=== PATIENT | female | born 1995 | race Caucasian/White ===

== ENCOUNTER 2016-08-19 17:54 | Observation (INO) ==
[2016-08-19 19:15] LABS: Basophils % 0.2 %; Eosinophils # 0.1 K/mcL (0.0-0.6); Eosinophils % 0.5 %; Hematocrit 39.5 % (35.3-44.9); Hemoglobin 13.7 g/dL (11.5-15.4); Immature Granulocytes % 0.9 % (0-4); Lymphocytes # 2.7 K/mcL (0.6-4.6); Lymphocytes % 21.7 %; Mean Corpuscular HGB Conc 34.7 g/dL (31.6-35.5); Mean Corpuscular Hemoglobin 30.6 pg (28.0-33.3); Mean Corpuscular Volume 88.4 fL (83.0-100.0); Monocytes % 7.9 %; Neutrophils # 8.6 K/mcL (1.6-8.9); Platelet Count 242 K/mcL (140-400); Red Blood Count 4.47 M/mcL (3.82-4.97); Red Cell Distribution Width 12.2 % (11.5-14.5); Segmented Neutrophils % 68.8 %
[2016-08-19 19:28] LABS: Alanine Aminotransferase 9 Units/L (0-55); Aspartate Amino Transferase 10 Units/L (5-34); BUN/Creatinine Ratio 16 (6-26); Blood Urea Nitrogen 9 mg/dL (7-20); Lactate Dehydrogenase 156 Units/L (159-327); Uric Acid 5.3 mg/dL (2.6-6.0); eGFR For African Americans > 60 (> 60); eGFR For Non-African Americans > 60 (> 60)
--- NOTE | 2016-08-19 19:57 | OB/GYN Progress Note ---
Date of Encounter: 08/19/16 Time of Encounter: 19:55 - Assessment and Plan (1) 34 weeks gestation of Current Visit: Yes Status: Chronic (2) Chronic hypertension affecting Current Visit: Yes Status: Chronic BP's 118-140/65-93, labs normal. Patient has appointment with her primary OB in the AM. She knows she should followup with her and plans to deliver at [facility] where she gets care. Patient was seen and evaluated by RN with reactive NST and normal BP's and sent home to followup tomorrow. Objective - Labs Labs: Abnormal lab results WBC 12.5 K/mcL (4.3-11.1) H 08/19/16 18:59 Lactate Dehydrogenase 156 Units/L (159-327) L 08/19/16 18:59
== END 2016-08-19 19:40 | disposition other institution (70) ==
LOC: 1NENULAB
PROVIDERS: ADMIT Obstetrics & Gynecology; ATTEND Obstetrics & Gynecology

== ENCOUNTER 2016-09-22 21:37 | Observation (INO) ==
[2016-09-22 21:54] LABS: Basophils # 0.1 K/mcL (0.0-0.2); Basophils % 0.4 %; Eosinophils # 0.2 K/mcL (0.0-0.6); Eosinophils % 1.4 %; Hematocrit 30.2 % (35.3-44.9); Hemoglobin 9.9 g/dL (11.5-15.4); Immature Granulocytes % 2.4 % (0-4); Lymphocytes # 2.8 K/mcL (0.6-4.6); Lymphocytes % 24.9 %; Mean Corpuscular HGB Conc 32.8 g/dL (31.6-35.5); Mean Corpuscular Hemoglobin 29.6 pg (28.0-33.3); Mean Corpuscular Volume 90.1 fL (83.0-100.0); Mean Platelet Volume 9.3 fL (9.4-12.4); Monocytes # 0.7 K/mcL (0.0-1.3); Monocytes % 6.1 %; Neutrophils # 7.4 K/mcL (1.6-8.9); Platelet Count 424 K/mcL (140-400); Red Blood Count 3.35 M/mcL (3.82-4.97); Segmented Neutrophils % 64.8 %
--- NOTE | 2016-09-22 21:54 | OB/GYN History & Physical ---
Date of Encounter: 09/22/16 Time of Encounter: 21:42 Assessment and Plan (1) hypertension Current visit: Yes Status: Acute BP 137/93 with HR 126 on intake. Serial BP measurements did not show HTN. Serial HR measurements did not show tachycardia. No significant edema. Lab work normal except AST of 41; patient is 7 days s/p . Patient stable without evidence of pre-eclampsia. History of Present Illness Chief complaint: BALLARD, HTN HPI: Ms. Zhang is a 21 year old female arriving from home via EMS with CC: BALLARD, HTN. BALLARD onset this morning, located right tempral without neurologic changes. Patient's significant other is in training for commercial lines sales executive/EMS; she measured her blood pressure to be 160/115. EMS in route measured BP 178/123 with HR 135. No seizures. Past medical history of HTN and HLD. Pre- HTN treated with Procardia 40mg PO Qdaily. Once , she was well controlled with labetolol until 7mo gestation when her BP increased steadily. She was switched to Procardia 60mg PO Qdaily. No proteinuria during . Patient was at [facility]. 15 September; indication- intolerance of labor. Patient had some confusion about her complications and said that she was given magnesium for several days and had post proteinuria. Patient's noted they performed a cardiac echo and planned on performing a spiral CT however patient signed out AMA from [facility] prior to completion of CT. OB: Elza Meza. Past Med Surg Social Fam HX - Past Medical History Medical history: hypertension, other Psychiatric history: ADHD, PTSD - Social History Smoking Status: Never smoker Smokeless Tobacco Status: No Alcohol use: none Drug use: none - Family History Mother Adopted: Yes Medications and Allergies Labetalol 50 mg PO BID 06/06/16 [History] Formula Tablet 1 tab PO DAILY 06/06/16 [History] PriLOSEC 20 mg PO DAILY 06/06/16 [History] Allergies duloxetine [From Cymbalta] Adverse Reaction (Verified 09/22/16 22:32) Rash Review of System OB - Nose, mouth, and throat Nose, mouth and throat: headache(s) - Cardiovascular Cardiovascular: leg edema, no chest pain, no dyspnea, no lightheadedness, no syncope - Respiratory Respiratory: no cough, no dyspnea - Gastrointestinal Gastrointestinal: no abdominal pain, no heartburn, no nausea - Genitourinary Genitourinary: no abnormal vaginal bleeding - Muscloskeletal Musculoskeletal: no muscle cramps, no muscle weakness - Neurological Nerological: headache(s), no confusion, no convulsions, no disequilibrium, no dizziness, no focal weakness, no loss of vision, no paresthesias, no sensory deficit, no tingling, no weakness - Psychiatric Psychiatric: no anxiety Exam - Constitutional Constitutional: well developed, well nourished, no acute distress, average body habitus - HEENT HEENT: EOMI, PERRL, Normocephaly, Mucus Membranes Moist - Neck Neck exam: normal inspection, supple - Lungs Respiratory exam: CTAB - Cardiovascular Cardiovascular exam: RRR, +S1, +S2 - Abdomen Abdomen: Present: bowel sounds normal, non tender. Absent: gravid, guarding noted, mass - Extremities Extremities exam: normal capillary refill, normal inspection, pedal edema (1 bilateral) Deep Tendon Reflex Grade: 2+ Normal - Uterus Uterus exam: Present: enlarged (firm, 3 finger breadths below umbilicus), normal contour - Comments Comments: NEURO: CN II-XII intact. Sensation to light touch intact. Muscle strength 5/5 and equal bilaterally in the upper and lower extremities. DTRs 2/4 and equal bilaterally lower extremities; no clonus. No focal neurologic deficits. Results Result Diagrams: 09/22/16 21:45 09/22/16 21:45 All other labs normal. - VTE Reasons for not Prescribing Prophylaxis: Treatment not Indicated - Low risk for VTE
[2016-09-22 22:08] LABS: Alanine Aminotransferase 52 Units/L (0-55); Aspartate Amino Transferase 41 Units/L (5-34); BUN/Creatinine Ratio 19 (6-26); Blood Urea Nitrogen 12 mg/dL (7-20); Uric Acid 5.9 mg/dL (2.6-6.0); eGFR For African Americans > 60 (> 60); eGFR For Non-African Americans > 60 (> 60)
[2016-09-22 22:12] LABS: Lactate Dehydrogenase 357 Units/L (159-327)
[2016-09-22 22:40] LABS: Protein/Creatinine Ratio,Urine 0.23 mg/mg (0-0.20)
[2016-09-22] MEDS: Acetaminophen 325 MG TABLET PO ONE ×2 (22:57→22:58)
--- NOTE | 2016-09-22 23:04 | Discharge Summary ---
Outpatient Proc Discharge Plan - Plan Prescriptions: Labetalol 100 mg PO BID #60 NIFEdipine XL (24 HR) [Procardia XL] 0 mg .ROUTE DAILY #30 tab.er.24 Home Medications: Formula Tablet 1 tab PO DAILY 06/06/16 [History] PriLOSEC 20 mg PO DAILY 06/06/16 [History] Labetalol 100 mg PO BID #60 09/22/16 [Rx] NIFEdipine XL (24 HR) [Procardia XL] 0 mg .ROUTE DAILY #30 tab.er.24 09/22/16 [ Rx]
[2016-09-23 01:05] VITALS: BP 144/99
== END 2016-09-22 23:57 | disposition home or self-care (01) ==
LOC: 1NENULAB
PROVIDERS: ADMIT Obstetrics & Gynecology; ATTEND Obstetrics & Gynecology

== ENCOUNTER 2020-07-19 17:57 | Observation (INO) | END 2020-07-19 19:15 | disposition home or self-care (01) | LOC: 1NENULAB | PROVIDERS: ADMIT Obstetrics & Gynecology; ATTEND Obstetrics & Gynecology ==

== ENCOUNTER → 2020-08-04 23:10 | Observation (INO) ==
[2020-08-04 22:11] LABS: Bacteria,Urine Few per hpf (None-Few); Bilirubin,Urine Negative (Negative); Blood,Urine Negative (Negative); Clarity,Urine Clear (Clear); Color,Urine Light-Yellow (Yellow); Glucose,Urine (UA) Normal (Normal); Ketones,Urine Negative (Negative); Leukocyte Esterase,Urine Trace (Negative); Nitrite,Urine Negative (Negative); Protein,Urine Trace mg/dL (Neg-Trace); RBC,Urine 0-3 per hpf (0-3); Specific Gravity,Urine 1.025 (1.010-1.025); Squamous Epithelial Cell,Urine Few per hpf (None-Few); WBC,Urine 0-3 per hpf (0-3)
== END | disposition home or self-care (01) ==
LOC: 1NENULAB
PROVIDERS: ADMIT Student in an Organized Health Care Education/Training Program; ATTEND Student in an Organized Health Care Education/Training Program

== ENCOUNTER 2020-08-29 22:22 | Observation (INO) ==
[2020-08-29 23:02] LABS: Bilirubin,Urine Negative (Negative); Blood,Urine Trace (Negative); Clarity,Urine Clear (Clear); Color,Urine Light-Yellow (Yellow); Glucose,Urine (UA) Normal (Normal); Ketones,Urine Trace mg/dL (Negative); Leukocyte Esterase,Urine Trace (Negative); Mucus,Urine Few per lpf (None-Few); Nitrite,Urine Negative (Negative); PH,Urine 6.5 pH Units (5.0-8.0); Protein,Urine Trace mg/dL (Neg-Trace); RBC,Urine 0-3 per hpf (0-3); Specific Gravity,Urine 1.025 (1.010-1.025); Squamous Epithelial Cell,Urine Moderate per hpf (None-Few); Urobilinogen,Urine Normal (Normal)
== END 2020-08-29 23:57 | disposition home or self-care (01) ==
LOC: 1NENULAB
PROVIDERS: ADMIT Advanced Practice Midwife; ATTEND Advanced Practice Midwife

== ENCOUNTER 2020-09-11 14:10 | Observation (INO) ==
[2020-09-11 15:42] LABS: Basophils % 0.4 %; Eosinophils # 0.1 K/mcL (0.0-0.6); Hematocrit 39.3 % (35.3-44.9); Hemoglobin 13.1 g/dL (11.5-15.4); Immature Granulocytes % 0.9 % (0-4); Lymphocytes # 2.1 K/mcL (0.6-4.6); Lymphocytes % 20.9 %; Mean Corpuscular HGB Conc 33.3 g/dL (31.6-35.5); Mean Corpuscular Hemoglobin 30.1 pg (28.0-33.3); Mean Corpuscular Volume 90.3 fL (83.0-100.0); Mean Platelet Volume 10.8 fL (9.4-12.4); Monocytes # 0.5 K/mcL (0.0-1.3); Monocytes % 4.8 %; Neutrophils # 7.1 K/mcL (1.6-8.9); Platelet Count 219 K/mcL (140-400); Red Blood Count 4.35 M/mcL (3.82-4.97); Red Cell Distribution Width 12.9 % (11.5-14.5); White Blood Count 9.9 K/mcL (4.3-11.1)
[2020-09-11 15:46] LABS: Protein/Creatinine Ratio,Urine 0.11 mg/mg (0.00-0.20)
[2020-09-11] MEDS ORDERED: Perflutren Lipid Microsphere 1.3 ML in 0.9 % Sodium Chloride 8.7 ML IVP PRN (15:53)
[2020-09-11 15:56] LABS: Alanine Aminotransferase 10 Units/L (7-52); Aspartate Amino Transferase 10 Units/L (13-39); BUN/Creatinine Ratio 9 (6-26); Blood Urea Nitrogen 4 mg/dL (6-20); Lactate Dehydrogenase 131 Units/L (140-271); Uric Acid 4.4 mg/dL (2.3-7.6); eGFR For African Americans > 60 (> 60); eGFR For Non-African Americans > 60 (> 60)
[2020-09-11 16:03] LABS: Bacteria,Urine Few per hpf (None-Few); Bilirubin,Urine Negative (Negative); Blood,Urine Trace (Negative); Clarity,Urine Clear (Clear); Color,Urine Light-Yellow (Yellow); Glucose,Urine (UA) Normal (Normal); Ketones,Urine Negative (Negative); Leukocyte Esterase,Urine Negative (Negative); Mucus,Urine Few per lpf (None-Few); Nitrite,Urine Negative (Negative); PH,Urine 6.5 pH Units (5.0-8.0); Protein,Urine Trace mg/dL (Neg-Trace); RBC,Urine 0-3 per hpf (0-3); Specific Gravity,Urine 1.024 (1.010-1.025); Squamous Epithelial Cell,Urine Few per hpf (None-Few); Urobilinogen,Urine Normal (Normal); WBC,Urine 0-3 per hpf (0-3)
[2020-09-11 18:51] LABS: Candida DNA Not Detected (Not Detect); Gardnerella DNA DETECTED (Not Detect); Trichomonas DNA Not Detected (Not Detect)
== END 2020-09-11 18:20 | disposition home or self-care (01) ==
LOC: 1NENULAB
PROVIDERS: ADMIT Obstetrics & Gynecology; ATTEND Obstetrics & Gynecology

== ENCOUNTER 2020-12-03 19:54 | Inpatient (IN) ==
[~2020-12-03 19:54] MED LIST: Azithromycin 500 MG in 0.9 % Sodium Chloride 250 ML IVPB ONE; Famotidine 20 MG/2 ML VIAL IVP PRN; Metoclopramide 10 MG/2 ML VIAL IVP PRN; Naloxone 0.4 MG/ML INJ IVP PRN; Ondansetron 4 MG/2 ML VIAL IVP PRN
[2020-12-03] MEDS ORDERED: Ringers Solution, Lactated 1,000 ML IVC SCH (20:00)
[2020-12-03] MEDS ORDERED: CeFAZolin Syr 3,000MG/30 ML 3,000 MG/30 ML SYRINGE IVPB ONE (20:07)
[2020-12-03] MEDS ORDERED: *HR* Labetalol 20 MG/4 ML SYRINGE IVP ONE ×2 (20:31→20:32)
[2020-12-03 21:30] LABS: Basophils % 0.3 %; Eosinophils # 0.1 K/mcL (0.0-0.6); Eosinophils % 0.6 %; Hematocrit 36.9 % (35.3-44.9); Hemoglobin 12.5 g/dL (11.5-15.4); Immature Granulocytes % 0.7 % (0-4); Lymphocytes # 1.4 K/mcL (0.6-4.6); Lymphocytes % 14.7 %; Mean Corpuscular HGB Conc 33.9 g/dL (31.6-35.5); Mean Corpuscular Hemoglobin 30.3 pg (28.0-33.3); Mean Corpuscular Volume 89.3 fL (83.0-100.0); Mean Platelet Volume 10.4 fL (9.4-12.4); Monocytes # 0.5 K/mcL (0.0-1.3); Monocytes % 5.5 %; Neutrophils # 7.5 K/mcL (1.6-8.9); Platelet Count 219 K/mcL (140-400); Red Blood Count 4.13 M/mcL (3.82-4.97); Red Cell Distribution Width 13.2 % (11.5-14.5); Segmented Neutrophils % 78.2 %; White Blood Count 9.6 K/mcL (4.3-11.1)
[2020-12-03 21:37] LABS: Amphetamine Screen,Urine Negative ng/mL (Cutoff=1000); Barbiturate Screen,Urine Negative ng/mL (Cutoff=200); Benzodiazepines Screen,Urine Negative ng/mL (Cutoff=200); Cannabinoid Screen,Urine Negative ng/mL (Cutoff = 50); Cocaine Screen,Urine Negative ng/mL (Cutoff= 300); Creatinine,Urine 68 mg/dL; Opiate Screen,Urine Negative ng/mL (Cutoff=300); Phencyclidine Screen,Urine Negative ng/mL (Cutoff=25); Protein/Creatinine Ratio,Urine 0.28 mg/mg (0.00-0.20)
[2020-12-04] MEDS ORDERED: *HR* Morphine Sulfate/PF 10 MG/10 ML AMPUL ONE (00:08)
[2020-12-04] MEDS ORDERED: *HR* FentaNYL (PF) 100 MCG/2 ML VIAL ONE (00:09)
[2020-12-04] MEDS ORDERED: Ondansetron 4 MG/2 ML VIAL ONE (00:28)
[2020-12-04] MEDS ORDERED: Acetaminophen IV 1,000 MG/100 ML BAG IVPB ONE (00:29)
[2020-12-04] MEDS ORDERED: Ketorolac 30 MG/ML VIAL ONE (00:29)
[2020-12-04] MEDS ORDERED: Oxytocin 20 units/ LR 1000 mL 20 UNIT/1,000 ML BAG IVC ONE (02:15)
[2020-12-04] MEDS ORDERED: *HR* OxyCODONE Immed Rel 5 MG TABLET PO PRN (02:35)
[2020-12-04 03:38] LABS: Basophils % 0.3 %; Eosinophils % 0.2 %; Hematocrit 33.2 % (35.3-44.9); Hemoglobin 11.1 g/dL (11.5-15.4); Immature Granulocytes % 0.6 % (0-4); Lymphocytes # 1.3 K/mcL (0.6-4.6); Lymphocytes % 10.4 %; Mean Corpuscular HGB Conc 33.4 g/dL (31.6-35.5); Mean Corpuscular Volume 89.7 fL (83.0-100.0); Mean Platelet Volume 10.4 fL (9.4-12.4); Monocytes # 0.3 K/mcL (0.0-1.3); Monocytes % 2.7 %; Neutrophils # 10.3 K/mcL (1.6-8.9); Platelet Count 208 K/mcL (140-400); Red Cell Distribution Width 13.3 % (11.5-14.5); Segmented Neutrophils % 85.8 %
[2020-12-04 03:51] LABS: Alanine Aminotransferase 9 Units/L (7-52); Aspartate Amino Transferase 14 Units/L (13-39); BUN/Creatinine Ratio 9 (6-26); Blood Urea Nitrogen 4 mg/dL (6-20); Lactate Dehydrogenase 216 Units/L (140-271); Uric Acid 5.2 mg/dL (2.3-7.6); eGFR For African Americans > 60 (> 60); eGFR For Non-African Americans > 60 (> 60)
[2020-12-04] MEDS ORDERED: Oxytocin 20 units/ LR 1000 mL 20 UNIT/1,000 ML BAG IVC SCH ×2 (04:02)
[2020-12-04] MEDS ORDERED: Simethicone 80 MG TAB.CHEW PO PRN (04:02)
[2020-12-04] MEDS ORDERED: Metoclopramide 10 MG/2 ML VIAL IVP PRN (04:02)
[2020-12-04] MEDS ORDERED: Acetaminophen 325 MG TABLET PO PRN (04:02)
[2020-12-04] MEDS ORDERED: Sennosides 8.6 MG TABLET PO PRN (04:02)
[2020-12-04] MEDS ORDERED: Ondansetron 4 MG/2 ML VIAL IVP PRN ×2 (04:02→17:55)
[2020-12-04] MEDS ORDERED: Rho Immune Globulin 1,500 UNIT SYRINGE IM ONE ×2 (04:02→10:51)
[2020-12-04] MEDS ORDERED: *HR* Labetalol 20 MG/4 ML SYRINGE IVP ONE (05:13)
[2020-12-04] MEDS: Ibuprofen 600 MG TABLET PO PRN ×2 (06:52→16:41)
[2020-12-04] MEDS: cephALEXin 500 MG CAPSULE PO SCH ×3 (08:56→20:39)
[2020-12-04] MEDS: metroNIDAZOLE 500 MG TABLET PO SCH ×3 (08:57→20:39)
[2020-12-04] MEDS: Prenatal Vit/FA 1 EACH TABLET PO SCH (08:57)
[2020-12-04] MEDS: *HR* OxyCODONE/APAP 5/325 TABLET PO PRN (20:40)
[2020-12-05] MEDS: Ibuprofen 600 MG TABLET PO PRN ×3 (01:48→15:22)
[2020-12-05] MEDS: Prenatal Vit/FA 1 EACH TABLET PO SCH (08:05)
[2020-12-05] MEDS: cephALEXin 500 MG CAPSULE PO SCH ×3 (08:06→21:19)
[2020-12-05] MEDS: metroNIDAZOLE 500 MG TABLET PO SCH ×3 (08:06→21:19)
[2020-12-05 12:40] LABS: Basophils % 0.3 %; Eosinophils # 0.1 K/mcL (0.0-0.6); Eosinophils % 0.7 %; Hematocrit 32.6 % (35.3-44.9); Hemoglobin 10.7 g/dL (11.5-15.4); Immature Granulocytes % 0.9 % (0-4); Lymphocytes # 1.8 K/mcL (0.6-4.6); Lymphocytes % 14.8 %; Mean Corpuscular HGB Conc 32.8 g/dL (31.6-35.5); Mean Corpuscular Hemoglobin 30.1 pg (28.0-33.3); Mean Corpuscular Volume 91.6 fL (83.0-100.0); Mean Platelet Volume 10.2 fL (9.4-12.4); Monocytes # 0.6 K/mcL (0.0-1.3); Monocytes % 4.6 %; Neutrophils # 9.4 K/mcL (1.6-8.9); Platelet Count 221 K/mcL (140-400); Red Blood Count 3.56 M/mcL (3.82-4.97); Red Cell Distribution Width 13.5 % (11.5-14.5); Segmented Neutrophils % 78.7 %; White Blood Count 11.9 K/mcL (4.3-11.1)
[2020-12-05 13:14] LABS: Alanine Aminotransferase 10 Units/L (7-52); Aspartate Amino Transferase 15 Units/L (13-39); BUN/Creatinine Ratio 13 (6-26); Blood Urea Nitrogen 7 mg/dL (6-20); Lactate Dehydrogenase 215 Units/L (140-271); Uric Acid 6.2 mg/dL (2.3-7.6); eGFR For African Americans > 60 (> 60); eGFR For Non-African Americans > 60 (> 60)
[2020-12-05] MEDS: NIFEdipine XL (24 HR) 30 MG TAB.ER.24 PO SCH (17:13)
[2020-12-05] MEDS: Famotidine 20 MG TABLET PO SCH (17:22)
[2020-12-05] MEDS ORDERED: NIFEdipine XL (24 HR) 30 MG TAB.ER.24 PO SCH (21:00)
[2020-12-06] MEDS: *HR* OxyCODONE Immed Rel 5 MG TABLET PO PRN ×2 (00:36→07:27)
[2020-12-06] MEDS: Ibuprofen 600 MG TABLET PO PRN ×2 (00:36→11:36)
[2020-12-06] MEDS: NIFEdipine XL (24 HR) 30 MG TAB.ER.24 PO SCH (07:27)
[2020-12-06] MEDS: Famotidine 20 MG TABLET PO SCH (07:28)
[2020-12-06] MEDS: Prenatal Vit/FA 1 EACH TABLET PO SCH (07:28)
[2020-12-06] MEDS: *HR* OxyCODONE/APAP 5/325 TABLET PO PRN (11:36)
[2020-12-06 11:42] VITALS: BP 152/98
[2020-12-09] MEDS ORDERED: Naloxone 0.4 MG/ML INJ IVP PRN (07:53)
[2020-12-09] MEDS ORDERED: Ondansetron 4 MG/2 ML VIAL IVP PRN (07:53)
[2020-12-09] MEDS ORDERED: *HR* HYDROmorphone (PF) 1 MG/ML SYRINGE IVP PRN (07:54)
== END 2020-12-06 14:03 | disposition home or self-care (01) | DRG 540 ==
LOC: 1NENULAB → 1NENUOBS 12-04 04:00
PROVIDERS: ADMIT Obstetrics & Gynecology; ATTEND Obstetrics & Gynecology

== ENCOUNTER → 2021-11-04 17:04 | Observation (INO) | END | disposition home or self-care (01) | LOC: 1NENULAB | PROVIDERS: ADMIT Obstetrics & Gynecology; ATTEND Obstetrics & Gynecology ==

== ENCOUNTER → 2021-11-26 15:28 | Observation (INO) ==
[2021-11-26 12:46] LABS: Basophils # 0.1 K/mcL (0.0-0.2); Basophils % 0.5 %; Eosinophils # 0.1 K/mcL (0.0-0.6); Eosinophils % 0.7 %; Hematocrit 37.4 % (35.3-44.9); Hemoglobin 12.4 g/dL (11.5-15.4); Immature Granulocytes % 0.8 % (0-4); Lymphocytes # 2.5 K/mcL (0.6-4.6); Lymphocytes % 22.7 %; Mean Corpuscular HGB Conc 33.2 g/dL (31.6-35.5); Mean Corpuscular Volume 90.6 fL (83.0-100.0); Monocytes # 0.6 K/mcL (0.0-1.3); Monocytes % 5.5 %; Neutrophils # 7.6 K/mcL (1.6-8.9); Platelet Count 204 K/mcL (140-400); Red Blood Count 4.13 M/mcL (3.82-4.97); Red Cell Distribution Width 12.6 % (11.5-14.5); Segmented Neutrophils % 69.8 %
[2021-11-26 12:51] LABS: Protein/Creatinine Ratio,Urine 0.12 mg/mg (0.00-0.20)
[2021-11-26 13:04] LABS: Alanine Aminotransferase 7 Units/L (7-52); Aspartate Amino Transferase 7 Units/L (13-39); BUN/Creatinine Ratio 10 (6-26); Blood Urea Nitrogen 6 mg/dL (6-20); Lactate Dehydrogenase 131 Units/L (140-271); Uric Acid 5.2 mg/dL (2.3-7.6); eGFR For African Americans > 60 (> 60); eGFR For Non-African Americans > 60 (> 60)
== END | disposition home or self-care (01) ==
LOC: 1NENULAB
PROVIDERS: ADMIT Obstetrics & Gynecology; ATTEND Obstetrics & Gynecology

== ENCOUNTER → 2021-12-01 00:06 | Observation (INO) ==
[2021-11-30 21:53] LABS: Basophils % 0.3 %; Eosinophils # 0.1 K/mcL (0.0-0.6); Eosinophils % 0.7 %; Hematocrit 36.3 % (35.3-44.9); Hemoglobin 12.5 g/dL (11.5-15.4); Immature Granulocytes % 1.1 % (0-4); Lymphocytes % 19.1 %; Mean Corpuscular HGB Conc 34.4 g/dL (31.6-35.5); Mean Corpuscular Hemoglobin 30.6 pg (28.0-33.3); Mean Platelet Volume 10.7 fL (9.4-12.4); Monocytes # 0.8 K/mcL (0.0-1.3); Monocytes % 7.5 %; Neutrophils # 7.6 K/mcL (1.6-8.9); Platelet Count 222 K/mcL (140-400); Red Blood Count 4.08 M/mcL (3.82-4.97); Red Cell Distribution Width 12.7 % (11.5-14.5); Segmented Neutrophils % 71.3 %; White Blood Count 10.6 K/mcL (4.3-11.1)
[2021-11-30 22:00] LABS: Protein/Creatinine Ratio,Urine 0.14 mg/mg (0.00-0.20)
[2021-11-30 22:10] LABS: Alanine Aminotransferase 6 Units/L (7-52); Aspartate Amino Transferase 8 Units/L (13-39); BUN/Creatinine Ratio 15 (6-26); Blood Urea Nitrogen 9 mg/dL (6-20); Lactate Dehydrogenase 155 Units/L (140-271); Uric Acid 5.8 mg/dL (2.3-7.6); eGFR For African Americans > 60 (> 60); eGFR For Non-African Americans > 60 (> 60)
[2021-11-30 22:19] LABS: Prothrombin Time 11.3 Seconds (9.4-12.1)
[2021-11-30 22:21] LABS: Activated Partial Thrombo Time 28.7 Seconds (26.0-36.0)
[~2021-12-01 00:06] MED LIST changes: +*HR* Labetalol 20 MG/4 ML SYRINGE IVP PRN; -Azithromycin 500 MG in 0.9 % Sodium Chloride 250 ML IVPB ONE; -Famotidine 20 MG/2 ML VIAL IVP PRN; -Metoclopramide 10 MG/2 ML VIAL IVP PRN; -Naloxone 0.4 MG/ML INJ IVP PRN; -Ondansetron 4 MG/2 ML VIAL IVP PRN
== END | disposition home or self-care (01) ==
LOC: 1NENULAB
PROVIDERS: ADMIT Student in an Organized Health Care Education/Training Program; ATTEND Student in an Organized Health Care Education/Training Program

== ENCOUNTER → 2021-12-25 11:25 | Observation (INO) ==
[2021-12-24 12:09] LABS: Basophils % 0.3 %; Eosinophils # 0.1 K/mcL (0.0-0.6); Eosinophils % 0.7 %; Hematocrit 34.5 % (35.3-44.9); Hemoglobin 11.6 g/dL (11.5-15.4); Lymphocytes # 2.5 K/mcL (0.6-4.6); Lymphocytes % 26.2 %; Mean Corpuscular HGB Conc 33.6 g/dL (31.6-35.5); Mean Corpuscular Hemoglobin 30.1 pg (28.0-33.3); Mean Corpuscular Volume 89.6 fL (83.0-100.0); Monocytes # 0.6 K/mcL (0.0-1.3); Monocytes % 6.4 %; Neutrophils # 6.1 K/mcL (1.6-8.9); Platelet Count 203 K/mcL (140-400); Red Blood Count 3.85 M/mcL (3.82-4.97); Segmented Neutrophils % 65.4 %; White Blood Count 9.4 K/mcL (4.3-11.1)
[2021-12-24 12:21] LABS: Protein/Creatinine Ratio,Urine 0.12 mg/mg (0.00-0.20)
[2021-12-24 12:26] LABS: Alanine Aminotransferase 4 Units/L (7-52); Aspartate Amino Transferase 11 Units/L (13-39); BUN/Creatinine Ratio 9 (6-26); Blood Urea Nitrogen 4 mg/dL (6-20); Lactate Dehydrogenase 204 Units/L (140-271); Uric Acid 5.4 mg/dL (2.3-7.6); eGFR For African Americans > 60 (> 60); eGFR For Non-African Americans > 60 (> 60)
[~2021-12-25 11:25] MED LIST changes: -*HR* Labetalol 20 MG/4 ML SYRINGE IVP PRN; +Acetaminophen 325 MG TABLET PO STA; +Magnesium Oxide 400 MG TABLET PO SCH
[2021-12-25 15:56] LABS: Total Volume 24 Hour,Urine 2.34 Liters (0.60-1.60)
[2021-12-25 16:15] LABS: Creatinine 24 Hour,Urine 538 mg/day (600-1800); Creatinine,Urine 23 mg/dL
== END | disposition home or self-care (01) ==
LOC: 1NENULAB
PROVIDERS: ADMIT Obstetrics & Gynecology; ATTEND Obstetrics & Gynecology

== ENCOUNTER 2022-01-14 21:02 | Inpatient (IN) ==
[~2022-01-14 21:02] MED LIST changes: +*HR* Labetalol 20 MG/4 ML SYRINGE IVP PRN; -Acetaminophen 325 MG TABLET PO STA; +Calcium Gluconate 1,000 MG/10 ML VIAL IVP PRN; +CeFAZolin 2,000 MG/120 ML BAG IVPB ONE; +Famotidine 20 MG/2 ML VIAL IVP ONE; -Magnesium Oxide 400 MG TABLET PO SCH; +Magnesium Sulf 20 gm/SW 500mL 6 GM/150 ML BAG IV ONE; +Metoclopramide 10 MG/2 ML VIAL IVP ONE; +OXYTOCIN/RINGERS LACTATE 10 UNIT/166.6 ML BAG IVC ONE; +Ringers Solution, Lactated 1,000 ML IVC ONE
[2022-01-14] MEDS ORDERED: Magnesium Sulf 20 gm/SW 500mL 20 GM/500 ML IV.SOLN IVC SCH (21:15)
[2022-01-14] MEDS ORDERED: Oxytocin 30 UNIT/503 ML BAG IVC SCH (21:15)
[2022-01-14] MEDS ORDERED: Ringers Solution, Lactated 1,000 ML IVC SCH (21:15)
[2022-01-14 21:21] LABS: Basophils % 0.4 %; Eosinophils % 0.4 %; Hematocrit 36.9 % (35.3-44.9); Hemoglobin 12.6 g/dL (11.5-15.4); Immature Granulocytes % 0.7 % (0-4); Lymphocytes # 2.3 K/mcL (0.6-4.6); Mean Corpuscular HGB Conc 34.1 g/dL (31.6-35.5); Mean Corpuscular Hemoglobin 30.7 pg (28.0-33.3); Mean Corpuscular Volume 89.8 fL (83.0-100.0); Mean Platelet Volume 11.6 fL (9.4-12.4); Monocytes # 0.5 K/mcL (0.0-1.3); Monocytes % 4.9 %; Neutrophils # 8.1 K/mcL (1.6-8.9); Platelet Count 204 K/mcL (140-400); Red Blood Count 4.11 M/mcL (3.82-4.97); Red Cell Distribution Width 13.2 % (11.5-14.5); Segmented Neutrophils % 72.6 %; White Blood Count 11.1 K/mcL (4.3-11.1)
[2022-01-14 21:23] LABS: Bacteria,Urine Few per hpf (None-Few); Bilirubin,Urine Negative (Negative); Blood,Urine Negative (Negative); Clarity,Urine Turbid (Clear); Color,Urine Yellow (Yellow); Glucose,Urine (UA) Normal (Normal); Ketones,Urine Trace mg/dL (Negative); Leukocyte Esterase,Urine Large (Negative); Mucus,Urine Few per lpf (None-Few); Nitrite,Urine Negative (Negative); Protein,Urine 70 mg/dL (Neg-Trace); RBC,Urine 0-3 per hpf (0-3); Specific Gravity,Urine 1.028 (1.010-1.025); Squamous Epithelial Cell,Urine Moderate per hpf (None-Few); Urobilinogen,Urine Normal (Normal)
[2022-01-14 21:28] LABS: Protein/Creatinine Ratio,Urine 0.23 mg/mg (0.00-0.20)
[2022-01-14 21:38] LABS: Alanine Aminotransferase 5 Units/L (7-52); Aspartate Amino Transferase 9 Units/L (13-39); BUN/Creatinine Ratio 10 (6-26); Blood Urea Nitrogen 9 mg/dL (6-20); Lactate Dehydrogenase 194 Units/L (140-271); Uric Acid 7.6 mg/dL (2.3-7.6); eGFR For African Americans > 60 (> 60); eGFR For Non-African Americans > 60 (> 60)
[2022-01-14] MEDS ORDERED: *HR* Morphine Sulfate/PF 10 MG/10 ML AMPUL ONE (22:58)
[2022-01-14] MEDS ORDERED: *HR* FentaNYL (PF) 100 MCG/2 ML VIAL ONE (22:58)
[2022-01-15] MEDS ORDERED: Ondansetron 4 MG/2 ML VIAL ONE (00:07)
[2022-01-15] MEDS ORDERED: Ketorolac 30 MG/ML VIAL ONE (00:07)
[2022-01-15] MEDS ORDERED: Acetaminophen IV 1,000 MG/100 ML BAG IVPB ONE (00:08)
[2022-01-15] MEDS ORDERED: OXYTOCIN/RINGERS LACTATE 10 UNIT/166.6 ML BAG IVC ONE (03:37)
[2022-01-15] MEDS ORDERED: Oxytocin 30 UNIT/503 ML BAG IVC SCH (03:37)
[2022-01-15] MEDS ORDERED: Ringers Solution, Lactated 1,000 ML IVC SCH (03:37)
[2022-01-15] MEDS ORDERED: Calcium Gluconate 1,000 MG/10 ML VIAL IVP PRN (03:37)
[2022-01-15] MEDS ORDERED: Rho Immune Globulin 1,500 UNIT SYRINGE IM ONE (03:37)
[2022-01-15] MEDS ORDERED: Metoclopramide 10 MG/2 ML VIAL IVP PRN (03:37)
[2022-01-15] MEDS: Acetaminophen 325 MG TABLET PO SCH ×3 (04:21→23:24)
[2022-01-15] MEDS: Ondansetron 4 MG/2 ML VIAL IVP PRN ×2 (05:38→17:08)
[2022-01-15] MEDS: Magnesium Sulf 20 gm/SW 500mL 20 GM/500 ML IV.SOLN IVC SCH ×2 (06:12→17:07)
[2022-01-15 06:39] LABS: Basophils % 0.1 %; Hematocrit 34.5 % (35.3-44.9); Hemoglobin 11.5 g/dL (11.5-15.4); Immature Granulocytes % 0.5 % (0-4); Lymphocytes # 1.2 K/mcL (0.6-4.6); Mean Corpuscular HGB Conc 33.3 g/dL (31.6-35.5); Mean Corpuscular Hemoglobin 30.1 pg (28.0-33.3); Mean Corpuscular Volume 90.3 fL (83.0-100.0); Mean Platelet Volume 11.7 fL (9.4-12.4); Monocytes # 0.3 K/mcL (0.0-1.3); Monocytes % 1.8 %; Neutrophils # 15.4 K/mcL (1.6-8.9); Platelet Count 207 K/mcL (140-400); Red Blood Count 3.82 M/mcL (3.82-4.97); Red Cell Distribution Width 13.3 % (11.5-14.5); Segmented Neutrophils % 90.6 %
[2022-01-15] MEDS: Prenatal Vit/FA 1 EACH TABLET PO SCH (09:03)
[2022-01-15] MEDS: Ibuprofen 600 MG TABLET PO SCH ×3 (09:04→23:23)
[2022-01-15] MEDS: Simethicone 80 MG TAB.CHEW PO SCH ×3 (09:04→23:23)
[2022-01-15 09:18] LABS: Amphetamine Screen,Urine Negative ng/mL (Cutoff=1000); Barbiturate Screen,Urine Negative ng/mL (Cutoff=200); Benzodiazepines Screen,Urine Negative ng/mL (Cutoff=200); Cannabinoid Screen,Urine Negative ng/mL (Cutoff = 50); Cocaine Screen,Urine Negative ng/mL (Cutoff= 300); Opiate Screen,Urine Negative ng/mL (Cutoff=300); Phencyclidine Screen,Urine Negative ng/mL (Cutoff=25)
[2022-01-15] MEDS: *HR* OxyCODONE Immed Rel 5 MG TABLET PO PRN ×2 (12:23→18:09)
[2022-01-16] MEDS: *HR* OxyCODONE Immed Rel 5 MG TABLET PO PRN ×3 (03:22→17:17)
[2022-01-16] MEDS: Ibuprofen 600 MG TABLET PO SCH ×3 (06:33→20:42)
[2022-01-16] MEDS: Acetaminophen 325 MG TABLET PO SCH ×3 (06:34→20:41)
[2022-01-16] MEDS: Simethicone 80 MG TAB.CHEW PO SCH ×2 (07:24→20:42)
[2022-01-16] MEDS: Prenatal Vit/FA 1 EACH TABLET PO SCH (07:24)
[2022-01-17] MEDS: *HR* OxyCODONE Immed Rel 5 MG TABLET PO PRN ×3 (01:19→12:29)
[2022-01-17] MEDS: Acetaminophen 325 MG TABLET PO SCH ×2 (02:42→12:29)
[2022-01-17] MEDS: Ibuprofen 600 MG TABLET PO SCH ×2 (02:43→12:29)
[2022-01-17 06:48] VITALS: BP 131/85; PULSE 79; TEMP 97.9; O2SAT 97
[2022-01-17] MEDS: Prenatal Vit/FA 1 EACH TABLET PO SCH (07:48)
[2022-01-17] MEDS: Simethicone 80 MG TAB.CHEW PO SCH (07:48)
== END 2022-01-17 13:30 | disposition home or self-care (01) | DRG 539 ==
LOC: 1NENULAB → 1NENUOBS 01-15 03:31
PROVIDERS: ADMIT Obstetrics & Gynecology; ATTEND Obstetrics & Gynecology

== ENCOUNTER 2022-01-20 00:17 | Observation (INO) ==
[2022-01-20 01:10] LABS: Basophils % 0.3 %; Eosinophils # 0.4 K/mcL (0.0-0.6); Eosinophils % 3.4 %; Hematocrit 34.3 % (35.3-44.9); Hemoglobin 11.3 g/dL (11.5-15.4); Immature Granulocytes % 1.4 % (0-4); Lymphocytes # 1.6 K/mcL (0.6-4.6); Lymphocytes % 15.9 %; Mean Corpuscular HGB Conc 32.9 g/dL (31.6-35.5); Mean Corpuscular Hemoglobin 29.8 pg (28.0-33.3); Mean Corpuscular Volume 90.5 fL (83.0-100.0); Mean Platelet Volume 9.9 fL (9.4-12.4); Monocytes # 0.7 K/mcL (0.0-1.3); Monocytes % 6.7 %; Neutrophils # 7.4 K/mcL (1.6-8.9); Nucleated Red Blood Cells 0.3 /100 WBC (0); Platelet Count 311 K/mcL (140-400); Red Blood Count 3.79 M/mcL (3.82-4.97); Red Cell Distribution Width 13.9 % (11.5-14.5); Segmented Neutrophils % 72.3 %; White Blood Count 10.2 K/mcL (4.3-11.1)
[2022-01-20 01:37] LABS: Alanine Aminotransferase 24 Units/L (7-52); Albumin 3.7 g/dL (3.5-5.7); Albumin/Globulin Ratio 1.2 (1.1-2.2); Alkaline Phosphatase 113 Units/L (34-104); Aspartate Amino Transferase 18 Units/L (13-39); BUN/Creatinine Ratio 13 (6-26); Bilirubin,Direct 0.1 mg/dL (0.0-0.2); Bilirubin,Indirect 0.4 mg/dL (0.0-1.0); Bilirubin,Total 0.5 mg/dL (0.3-1.0); Blood Urea Nitrogen 9 mg/dL (6-20); Globulin 3.2 g/dL (2.4-3.5); Lactate Dehydrogenase 293 Units/L (140-271); Total Protein 6.9 g/dL (6.4-8.9); eGFR For African Americans > 60 (> 60); eGFR For Non-African Americans > 60 (> 60)
[2022-01-20 01:40] LABS: Bilirubin,Urine Negative (Negative); Blood,Urine Large (Negative); Clarity,Urine Clear (Clear); Color,Urine Light-Yellow (Yellow); Glucose,Urine (UA) Normal (Normal); Hyaline Casts,Urine Few per lpf (None Seen); Ketones,Urine Negative (Negative); Leukocyte Esterase,Urine Small (Negative); Mucus,Urine Few per lpf (None-Few); Nitrite,Urine Negative (Negative); PH,Urine 7.5 pH Units (5.0-8.0); Protein,Urine Trace mg/dL (Neg-Trace); RBC,Urine 30-50 per hpf (0-3); Squamous Epithelial Cell,Urine Few per hpf (None-Few); Transitional Epi Cells,Urine Few per hpf (None-Few); Urobilinogen,Urine Normal (Normal)
[2022-01-20 01:47] LABS: Influenza A PCR Negative (Negative); Influenza B PCR Negative (Negative); Resp. Syncytial Virus PCR Negative (Negative)
[2022-01-20 01:49] LABS: SARS-CoV-2 by PCR (In House) Negative (Negative)
[2022-01-20 01:49] LABS: Protein/Creatinine Ratio,Urine 0.18 mg/mg (0.00-0.20)
[2022-01-20] MEDS ORDERED: Iopamidol - 370 500 ML MLS IVP ONE (02:12)
[2022-01-20] MEDS ORDERED: *HR* Labetalol 20 MG/4 ML SYRINGE IVP ONE ×3 (02:12→04:28)
[2022-01-20] MEDS ORDERED: Magnesium Sulf 20 gm/SW 500mL 6 GM/150 ML BAG IV ONE (02:24)
[2022-01-20] MEDS: Magnesium Sulf 20 gm/SW 500mL 20 GM/500 ML IV.SOLN IVC SCH ×3 (03:42→22:16)
[2022-01-20] MEDS ORDERED: Simethicone 80 MG TAB.CHEW PO PRN (04:39)
[2022-01-20] MEDS ORDERED: Ondansetron 4 MG/2 ML VIAL IVP PRN (04:39)
[2022-01-20] MEDS ORDERED: *HR* HYDROcodone/Acet 5/325 mg TABLET PO PRN (04:45)
[2022-01-20] MEDS: NIFEdipine XL (24 HR) 60 MG TAB.ER.24 PO SCH (06:09)
[2022-01-20] MEDS: Ringers Solution, Lactated 1,000 ML IVC SCH ×2 (06:10→18:44)
[2022-01-20] MEDS: Acetaminophen 325 MG TABLET PO SCH ×3 (06:10→20:19)
[2022-01-20] MEDS ORDERED: Calcium Gluconate 1,000 MG/10 ML VIAL IVP PRN (06:56)
[2022-01-20] MEDS ORDERED: FLUoxetine HCl Oral Soln 20 MG/5 ML UDC PO SCH (09:00)
[2022-01-20] MEDS: Ibuprofen 600 MG TABLET PO SCH ×2 (10:07→18:06)
[2022-01-20] MEDS: Prenatal Vit/FA 1 EACH TABLET PO SCH (10:07)
[2022-01-20] MEDS: FLUoxetine 20 MG CAPSULE PO SCH (12:22)
[2022-01-20] MEDS ORDERED: ARIPiprazole 5 MG TABLET PO SCH (21:00)
[2022-01-21] MEDS: Ibuprofen 600 MG TABLET PO SCH ×2 (00:08→08:21)
[2022-01-21] MEDS: Acetaminophen 325 MG TABLET PO SCH (03:26)
[2022-01-21 04:08] LABS: Basophils % 0.4 %; Eosinophils # 0.4 K/mcL (0.0-0.6); Eosinophils % 3.8 %; Hematocrit 34.4 % (35.3-44.9); Hemoglobin 11.2 g/dL (11.5-15.4); Immature Granulocytes % 1.3 % (0-4); Lymphocytes # 2.3 K/mcL (0.6-4.6); Lymphocytes % 24.6 %; Mean Corpuscular HGB Conc 32.6 g/dL (31.6-35.5); Mean Corpuscular Hemoglobin 29.8 pg (28.0-33.3); Mean Corpuscular Volume 91.5 fL (83.0-100.0); Mean Platelet Volume 9.6 fL (9.4-12.4); Monocytes # 0.7 K/mcL (0.0-1.3); Monocytes % 7.3 %; Neutrophils # 5.7 K/mcL (1.6-8.9); Platelet Count 301 K/mcL (140-400); Red Blood Count 3.76 M/mcL (3.82-4.97); Red Cell Distribution Width 13.9 % (11.5-14.5); Segmented Neutrophils % 62.6 %; White Blood Count 9.2 K/mcL (4.3-11.1)
[2022-01-21 04:12] LABS: Protein/Creatinine Ratio,Urine 0.12 mg/mg (0.00-0.20)
[2022-01-21 04:22] LABS: Alanine Aminotransferase 21 Units/L (7-52); Aspartate Amino Transferase 19 Units/L (13-39); BUN/Creatinine Ratio 18 (6-26); Blood Urea Nitrogen 12 mg/dL (6-20); Lactate Dehydrogenase 243 Units/L (140-271); eGFR For African Americans > 60 (> 60); eGFR For Non-African Americans > 60 (> 60)
[2022-01-21] MEDS: NIFEdipine XL (24 HR) 60 MG TAB.ER.24 PO SCH (08:20)
[2022-01-21] MEDS: Prenatal Vit/FA 1 EACH TABLET PO SCH (08:20)
[2022-01-21] MEDS: FLUoxetine 20 MG CAPSULE PO SCH (08:21)
[2022-01-21 15:13] VITALS: BP 124/79; PULSE 78; TEMP 98.4; O2SAT 79
== END 2022-01-21 17:11 | disposition home or self-care (01) ==
LOC: EMEROOARM 00:17 → 1NENUOBS 00:17
PROVIDERS: ADMIT Obstetrics & Gynecology; ATTEND Obstetrics & Gynecology